=== PATIENT | male | born 1995 | race African-American/Black ===

== ENCOUNTER 2017-05-09 21:08 | Emergency (ER) | payer BC, OTHER ==
[~2017-05-09] VITALS: Ht 165.1 cm; Wt 68.0 kg
[~2017-05-09 21:08] MED LIST: INDO25CA PO
[2017-05-09 21:09] VITALS: BP 154/86; PULSE 67; RESP 14; TEMP 97.9; O2SAT 100
--- NOTE | 2017-05-09 21:36 | PD ---
HPI Chief Complaint: Musculoskeletal Complaint Time Seen by Provider: 21:36 Travel History International Travel<30 days: No Contact w/Intl Traveler<30days: No Traveled to known affect area: No History of Present Illness HPI 22-year-old male came to the emergency room with history of right upper quadrant pain since yesterday. Patient says the pain was worse yesterday. Today he was at work and did not appreciate the pain too much until he finished working. He did eat a pizza today but that did not make the pain worse. No aggravating or relieving factors identified. No radiation of the pain. He does seem uncomfortable. Vital signs are stable. No associated nausea or vomiting. No associated shortness of breath. Patient has never had this kind of pain in the past. He is a relatively healthy individual. [facility] Past Medical History Narrative Medical List of his past medical, surgical, social and family history reviewed from the nursing note. Medical History: Denies Significant Hx Past Surgical History Surgical History: No Previous Surgery Social History Alcohol Use: No Tobacco Use: No Substance Use: No Allergies-Medications (Allergen,Severity, Reaction): Coded Allergies: No Known Allergies (Unverified Adverse Reaction, Unknown, 05/09/17) Comments No known drug allergies. Reported Meds & Prescriptions Reported Meds & Active Scripts Active Ibuprofen 400 Mg Tab 400 Mg PO Q6H PRN Indomethacin 25 Mg Cap 25 Mg PO TID 7 Days Narrative Medication List of his home medications reviewed from the nursing note. Review of Systems Except as stated in HPI: all other systems reviewed are Neg Gastrointestinal: Positive: Abdominal Pain Physical Exam Narrative GENERAL: Awake, alert, moderate distress SKIN: Focused skin assessment warm/dry. HEAD: Atraumatic. Normocephalic. EYES: Pupils equal and round. No scleral icterus. No injection or drainage. ENT: No nasal bleeding or discharge. Mucous membranes pink and moist. NECK: Trachea midline. No JVD. CARDIOVASCULAR: Regular rate and rhythm. No murmur appreciated. RESPIRATORY: No accessory muscle use. Clear to auscultation. Breath sounds equal bilaterally. GASTROINTESTINAL: Abdomen soft, right upper quadrant tenderness, nondistended. Hepatic and splenic margins not palpable. MUSCULOSKELETAL: No obvious deformities. No clubbing. No cyanosis. No edema. NEUROLOGICAL: Awake and alert. No obvious cranial nerve deficits. Motor grossly within normal limits. Normal speech. PSYCHIATRIC: Appropriate mood and affect; insight and judgment normal. Data Data Last Documented VS Vital Signs Date Time Temp Pulse Resp B/P (MAP) Pulse Ox O2 Delivery O2 Flow Rate FiO2 05/09/17 21:09 97.9 67 14 154/86 (108) 100 Room Air Orders Orders Ed Poc Ultrasound (05/09/17 ) Complete Blood Count With Diff (05/09/17 21:40) Comprehensive Metabolic Panel (05/09/17 21:40) Lipase (05/09/17 21:40) Iv Access Insert/Monitor (05/09/17 21:40) Ecg Monitoring (05/09/17 21:40) Oximetry (05/09/17 21:40) Sodium Chloride 0.9% Flush (Ns Flush) (05/09/17 21:45) Ketorolac Inj (Toradol Inj) (05/09/17 21:45) Chest, Single Ap (05/09/17 ) Ed Discharge Order (05/09/17 22:33) Labs Laboratory Tests Test 05/09/17 21:50 White Blood Count 6.7 TH/MM3 Red Blood Count 5.53 MIL/MM3 Hemoglobin 12.9 GM/DL Hematocrit 40.3 % Mean Corpuscular Volume 72.8 FL Mean Corpuscular Hemoglobin 23.3 PG Mean Corpuscular Hemoglobin Concent 32.0 % Red Cell Distribution Width 14.5 % Platelet Count 252 TH/MM3 Mean Platelet Volume 8.4 FL Neutrophils (%) (Auto) 44.1 % Lymphocytes (%) (Auto) 38.6 % Monocytes (%) (Auto) 13.2 % Eosinophils (%) (Auto) 3.5 % Basophils (%) (Auto) 0.6 % Neutrophils # (Auto) 2.9 TH/MM3 Lymphocytes # (Auto) 2.6 TH/MM3 Monocytes # (Auto) 0.9 TH/MM3 Eosinophils # (Auto) 0.2 TH/MM3 Basophils # (Auto) 0.0 TH/MM3 CBC Comment DIFF FINAL Differential Comment Blood Urea Nitrogen 15 MG/DL Creatinine 1.25 MG/DL Random Glucose 98 MG/DL Total Protein 8.4 GM/DL Albumin 3.5 GM/DL Calcium Level 8.7 MG/DL Alkaline Phosphatase 98 U/L Aspartate Amino Transf (AST/SGOT) 27 U/L Alanine Aminotransferase (ALT/SGPT) 27 U/L Total Bilirubin 0.3 MG/DL Sodium Level 138 MEQ/L Potassium Level 3.7 MEQ/L Chloride Level 100 MEQ/L Carbon Dioxide Level 33.7 MEQ/L Anion Gap 4 MEQ/L Estimat Glomerular Filtration Rate 88 ML/MIN Lipase 106 U/L MDM Medical Decision Making Medical Screen Exam Complete: Yes Emergency Medical Condition: Yes Medical Record Reviewed: Yes Differential Diagnosis Acute cholecystitis, biliary colic, musculoskeletal pain Narrative Course 10:09 PM I did the bedside ultrasound to look at the gallbladder. Please refer to my procedure note. Waiting for the blood test result. Patient has been medicated for pain. 10:31 PM blood test results are back and within acceptable limit. I will discharge him home. Procedures Procedure Narrative Emergency department right upper quadrant ultrasound was performed with patient consent. Curvilinear probe was used in the transverse and sagittal views within the right upper quadrant revealing gallbladder without obvious wall thickening, cholecystic fluid, or cholelithiasis. EKG Prior to Arrival: No Diagnosis Primary Impression: Musculoskeletal pain Referrals: Primary Care Physician Additional Instructions: Take the medication as per prescription direction. Do not take it empty stomach. Return to ER if condition worsens or any other new concerns. Otherwise follow-up with your primary care. Med/Other Pt SpecificInfo: Prescription(s) given Scripts Ibuprofen (Ibuprofen) 400 Mg Tab 400 MG PO Q6H Y for PAIN SCALE 1 TO 4, #30 TAB 0 Refills Prov: Harris Cochran MD 05/09/17 Disposition: 01 DISCHARGE HOME Condition: Stable Harris Cochran MD May 09, 2017 21:36
[2017-05-09] MEDS ORDERED: SODIUM CHLORIDE 0.9% FLUSH 10 ML FLUSH IV FLUSH PRN (21:45)
[2017-05-09] MEDS ORDERED: KETOROLAC TROMETHAMINE 30 MG/ML (IVP) VIAL IVP ONE (21:45)
[2017-05-09 22:10] LABS: AUTOMATED NEUTROPHIL # 2.9 TH/MM3 (1.8-7.7); BASOPHIL % 0.6 % (0.0-2.0); EOSINOPHIL # 0.2 TH/MM3 (0-0.4); EOSINOPHIL % 3.5 % (0.0-4.0); HEMATOCRIT 40.3 % (39.0-51.0); HEMOGLOBIN 12.9 GM/DL (13.0-17.0); LYMPH % 38.6 % (9.0-44.0); LYMPHOCYTE # 2.6 TH/MM3 (1.0-4.8); MEAN CELL VOLUME 72.8 FL (80.0-100.0); MEAN CORPUSCULAR HEMOGLOBIN 23.3 PG (27.0-34.0); MEAN PLATELET VOLUME 8.4 FL (7.0-11.0); MONO % 13.2 % (0.0-8.0); MONOCYTE # 0.9 TH/MM3 (0-0.9); NEUT % 44.1 % (16.0-70.0); PLATELET COUNT 252 TH/MM3 (150-450); RED BLOOD COUNT 5.53 MIL/MM3 (4.50-5.90); RED CELL DISTRIBUTION WIDTH 14.5 % (11.6-17.2); WHITE BLOOD COUNT 6.7 TH/MM3 (4.0-11.0)
--- NOTE | 2017-05-09 22:23 | RADRPT ---
EXAM DATE/TIME: 05/09/2017 22:08 [facility] COMPARISON: No previous studies available for comparison. INDICATIONS : Right sided chest pain for one day with no history of trauma. MEDICAL HISTORY : None. SURGICAL HISTORY : None. ENCOUNTER: Initial ACUITY: 1 day PAIN SCORE: 7/10 LOCATION: Right chest FINDINGS: A single view of the chest demonstrates the lungs to be symmetrically aerated without evidence of mas s, infiltrate or effusion. The cardiomediastinal contours are unremarkable. Osseous structures are intact. CONCLUSION: No acute disease. Baldev Kong MD on May 09, 2017 at 22:19 Board Certified Radiologist. This report was verified electronically.
[2017-05-09 22:27] LABS: ALBUMIN 3.5 GM/DL (3.4-5.0); AST (GOT) 27 U/L (15-37); BICARBONATE 33.7 MEQ/L (21.0-32.0); BLOOD UREA NITROGEN 15 MG/DL (7-18); CALCIUM 8.7 MG/DL (8.5-10.1); CHLORIDE 100 MEQ/L (98-107); CREATININE 1.25 MG/DL (0.60-1.30); GLOMERULAR FILTRATION RATE 88 ML/MIN (>89); GLUCOSE,RANDOM 98 MG/DL (74-106); SODIUM (NA) 138 MEQ/L (136-145)
[2017-05-09 22:30] LABS: ALKALINE PHOSPHATASE 98 U/L (45-117); ALT (GPT) 27 U/L (12-78); TOTAL BILIRUBIN ADULT 0.3 MG/DL (0.2-1.0); TOTAL PROTEIN 8.4 GM/DL (6.4-8.2)
[2017-05-09] MEDS ORDERED: IBUP1TAB5 PO (22:33)
== END 2017-05-09 22:46 | disposition home or self-care (01) ==
LOC: NEPD 21:08
DX: M79.1 Myalgia (principal)
CPT/HCPCS: 71045; 80053; 83690; 85025; 96374; 99284; J1885